=== PATIENT | male | born 1995 | race Caucasian/White ===

== ENCOUNTER 2018-08-13 09:12 | Day surgery (SDC) | payer OTHER ==
[~2018-08-13] VITALS: Ht 177.8 cm; Wt 83.9 kg
[2018-08-13] MEDS ORDERED: MIDAZOLAM HCL 5 MG/5 ML VIAL IVP ONE (12:05)
[2018-08-13] MEDS ORDERED: ONDANSETRON HCL 4 MG/2 ML VIAL IVP ONE (12:05)
[2018-08-13] MEDS ORDERED: GLYCOPYRROLATE 0.2 MG/ML VIAL IJ ONE (12:05)
[2018-08-13] MEDS ORDERED: CEFAZOLIN 2 GM IVPB PREMIX 50 ML IV ONE (12:05)
[2018-08-13] MEDS ORDERED: LR 1,000 ML IV.SOLN IV ONE (12:05)
[2018-08-13] MEDS ORDERED: SEVOFLURANE 15 MIN GAS INH ONE (12:05)
[2018-08-13] MEDS ORDERED: NEOSTIGMINE METHYLSULFATE 1 MG/ML, 10 ML VIAL IVP ONE (12:05)
[2018-08-13] MEDS ORDERED: BACITRACIN ZINC 15 GM TOPICAL OINTMENT TP ONE (12:05)
[2018-08-13] MEDS ORDERED: NS IRRIG SOLN 1000 ML IR ONE (12:05)
[2018-08-13] MEDS ORDERED: fentaNYL CITRATE/PF 100 MCG/2 ML AMP IVP ONE (12:05)
[2018-08-13] MEDS ORDERED: DEXAMETHASONE SOD PHOSPHATE 4 MG/ML VIAL IVP ONE (12:05)
[2018-08-13] MEDS ORDERED: ROCURONIUM BROMIDE 10 MG/ML (ZEMURON) IV ONE (12:05)
[2018-08-13] MEDS ORDERED: fentaNYL CITRATE/PF 100 MCG/2 ML AMP IVP PRN ×2 (13:00)
[2018-08-13] MEDS ORDERED: ONDANSETRON HCL 4 MG/2 ML VIAL IVP PRN (13:00)
[2018-08-13] MEDS ORDERED: PROMETHAZINE HCL 25 MG/ML AMP IM PRN (13:45)
[2018-08-13] MEDS ORDERED: ACETAMINOPHEN WITH CODEINE 12.5 ML UDC PO PRN (13:45)
[2018-08-13] MEDS ORDERED: PROMETHAZINE HCL 25 MG/ML AMP ONE (13:50)
[2018-08-13] MEDS ORDERED: ACETAMINOPHEN WITH CODEINE 12.5 ML UDC ONE (14:53)
[2018-08-13 15:11] VITALS: BP_SYST 123
== END 2018-08-13 14:55 | disposition home or self-care (01) ==
LOC: SMU 09:12 → SDS 09:12
PROVIDERS: ATTEND Otolaryngology Plastic Surgery within the Head & Neck
DX: J35.01 Chronic tonsillitis (principal)
CPT/HCPCS: 42826; 88304; J0690; J1100; J2250; J2405; J2550; J2710; J3010; J3490; J7120